=== PATIENT | female | born 1975 | race Two or more races ===

== ENCOUNTER 2022-09-18 13:04 | Outpatient (CLI) | payer OTHER | END 2022-09-18 13:07 | disposition home or self-care (01) | LOC: NUCLEAR 13:04 | DX: M81.0 Age-related osteoporosis without current pathological fracture (principal) ==

== ENCOUNTER 2022-09-19 08:23 | Outpatient (CLI) | payer OTHER | END 2022-09-19 08:28 | disposition home or self-care (01) | LOC: MAMO-SONO 08:23 | DX: Z12.31 Encounter for screening mammogram for malignant neoplasm of breast (principal) ==

== ENCOUNTER 2023-06-07 14:45 | Emergency (ER) | payer OTHER ==
[~2023-06-07] VITALS: Ht 154.9 cm; Wt 80.7 kg
[2023-06-07] MEDS ORDERED: COZAAR50 MG PO (15:44)
[2023-06-07] MEDS ORDERED: cloNIDine HCL 0.2 MG TABLET PO STA (17:09)
[2023-06-07 17:37] LABS: HEMATOCRIT 42.4 % (36.0-45.00); HEMOGLOBIN 14.7 g/dL (12.0-15.00); MEAN CELL VOLUME 85.3 fL (80.00-100.00); MEAN CORPUSCULAR HEMOGLOBIN 29.5 pg (27.00-32.0); MEAN CORPUSCULAR HGB CONC 34.6 g/dl (32.0-36.0); PLATELET COUNT 387 K/uL (150-450); RED BLOOD COUNT 4.97 M/uL (4.00-6.00); RED CELL DISTRIBUTION WIDTH 13.8 % (11.5-14.5)
[2023-06-07 18:13] LABS: CALCIUM 10.6 mg/dL (8.5-10.1); CREATININE SERUM 0.61 mg/dL (0.55-1.02); GFR 104.68; POTASSIUM 4.15 mEq/L (3.5-5.1)
[2023-06-07] MEDS ORDERED: KETOROLAC TROMETHAMINE 30 MG VIAL IM STA (18:59)
== END 2023-06-07 19:47 | disposition home or self-care (01) ==
LOC: ER 14:46
PROVIDERS: General Practice
DX: I10 Essential (primary) hypertension (principal); R51.9 Headache, unspecified

== ENCOUNTER 2024-01-22 08:03 | Outpatient (CLI) | payer OTHER ==
[~2024-01-22 08:03] MED LIST: COZAAR50 MG PO
== END 2024-01-22 08:10 | disposition home or self-care (01) ==
LOC: MAMO-SONO 08:03
PROVIDERS: ATTEND Obstetrics & Gynecology
DX: N60.11 Diffuse cystic mastopathy of right breast (principal); N60.12 Diffuse cystic mastopathy of left breast

== ENCOUNTER 2024-08-07 08:07 | Outpatient (CLI) | payer OTHER | END 2024-08-07 08:19 | disposition home or self-care (01) | LOC: SONOGRAMA 08:07 | PROVIDERS: ATTEND Obstetrics & Gynecology | DX: R16.0 Hepatomegaly, not elsewhere classified (principal) ==